=== PATIENT | female | born 1990 | race Caucasian/White ===

== ENCOUNTER 2017-05-05 20:03 | Emergency (ER) | payer BC ==
[2017-05-05 20:27] VITALS: BP 131/84
--- NOTE | 2017-05-05 20:32 | UC ---
Complaint Female HPI - HPI Summary HPI Summary: went off depo-provera 4 months ago---had a regular period in March and is bleeding and cramping now---is concerned she may be and miscarrying - History Of Current Complaint Chief Complaint: UCGU Stated Complaint: POSSIBLE MISCARRIAGE Time Seen by Provider: 05/05/17 20:29 Hx Obtained From: Patient Hx Last Menstrual Period: 04/22/17 ?: No Onset/Duration: Sudden Onset, Lasting Days - 1, Still Present Timing: Constant Severity Initially: Moderate Severity Currently: Moderate Pain Intensity: 4 Pain Scale Used: 0-10 Numeric Character: Cramping Aggravating Factor(s): Nothing Alleviating Factor(s): Nothing Associated Signs And Symptoms: Positive: Vaginal Bleeding/Discharge - Allergies/Home Medications Allergies/Adverse Reactions: Allergies Allergy/AdvReac Type Severity Reaction Status Date / Time No Known Allergies Allergy Verified 05/05/17 20:27 Home Medications: Home Medications Advil Menstrual* 1 tab PO PRN 05/05/17 [History] Vitamin TAB* 1 tab PO DAILY 05/05/17 [History Confirmed 05/05/17] PMH/Surg Hx/FS Hx/Imm Hx Previously Healthy: No - endometriosis - Surgical History Surgical History: Yes Surgery Procedure, Year, and Place: ear tubes 1999 - Family History Known Family History: Positive: None Negative: Hypertension, Diabetes - Social History Occupation: Employed Full-time Lives: With Family Alcohol Use: Occasionally Alcohol Amount: ONCE A MONTH Substance Use Type: None Smoking Status (MU): Never Smoked Tobacco - Immunization History Most Recent Influenza Vaccination: NEVER Most Recent Tetanus Shot: UTD Review of Systems Constitutional: Negative Skin: Negative Eyes: Negative ENT: Negative Respiratory: Negative Cardiovascular: Negative Gastrointestinal: Abdominal Pain - menstrual cramping Genitourinary: Negative Motor: Negative Neurovascular: Negative Musculoskeletal: Negative Neurological: Negative Psychological: Negative All Other Systems Reviewed And Are Negative: Yes Physical Exam Triage Information Reviewed: Yes Vital Signs: Initial Vital Signs Temp 98.8 F 05/05/17 20:23 Pulse 86 05/05/17 20:23 Resp 16 05/05/17 20:23 BP 131/84 05/05/17 20:23 Pulse Ox 100 05/05/17 20:23 Eye Exam: Normal Eyes: Positive: Conjunctiva Clear ENT Exam: Normal ENT: Positive: Normal ENT inspection, Hearing grossly normal. Negative: Nasal congestion, Nasal drainage, Trismus, Muffled/hoarse voice Dental Exam: Normal Neck exam: Normal Neck: Positive: Supple, Nontender Respiratory Exam: Normal Respiratory: Positive: Chest non-tender, Normal breath sounds, No respiratory distress Cardiovascular Exam: Normal Cardiovascular: Positive: RRR, No Murmur, Pulses Normal, Brisk Capillary Refill Abdominal Exam: Normal Abdomen Description: Positive: Nontender, No Organomegaly, Soft Bowel Sounds: Positive: Present Musculoskeletal Exam: Normal Musculoskeletal: Positive: Strength Intact, ROM Intact, No Edema Neurological Exam: Normal Neurological: Positive: Alert, Muscle Tone Normal Psychological Exam: Normal Psychological: Positive: Normal Response To Family, Age Appropriate Behavior Skin Exam: Normal Skin: Positive: rashes Diagnostics - Laboratory Diagnostic Studies Completed/Ordered: u preg (-), ua +blood Complaint Female Dx - Course Course Of Treatment: ibuprofen, warm pack on abdomwn follow with ob-assistant project manager prn - Differential Dx/Diagnosis Differential Diagnosis/HQI/PQRI: Endometriosis, , Renal Colic, Ureteral Stone, Urinary Tract Infection Provider Diagnoses: DUB Discharge - Discharge Plan Condition: Stable Disposition: HOME Patient Education Materials: Ibuprofen (By mouth), Dysfunctional Uterine Bleeding (ED), Warm Compress or Soak (ED) Referrals: Aliyah Rodgers [Primary Care Provider] - If Needed
== END 2017-05-05 21:00 | disposition home or self-care (01) ==
LOC: UCEAST 20:03
DX: N93.8 Other specified abnormal uterine and vaginal bleeding (principal)
CPT/HCPCS: 81003; 84702; 99211; G0463

== ENCOUNTER 2018-07-30 12:02 | Inpatient (IN) | payer BC ==
[2018-07-30] MEDS ORDERED: Misoprostol TAB* 100 MCG PO ONE (13:03)
--- NOTE | 2018-07-30 13:10 | HP ---
General Information - Reason for Visit Induction of labor for gestational hypertension - General Information Maternal Age: 28 Grav: 1 Para: 0 SAB: 0 IEA: 0 Estimated Due Date: 08/10/18 Determined By: Early Ultrasound Maternal Blood Type and Rh: A Positive - Results this Serology/RPR Result: Non-Reactive Rubella Result: Immune HBsAg Result: Negative HIV Result: Negative GBS Culture Result: Negative Past Medical History Pertinent Past Medical History: See Records - hx depression/anxiety Pertinent Past Surgical History: See Records - tubes in ears Pertinent Family History: See Records - CVD, HTN, Br CA, hypothyroidism - Antepartal Records Antepartal Records: Reviewed, Complicated by: - BMI 30, marginal previa (resolved 06/10/18), gestational hypertension without significant prontein urea Review of Systems Constitutional: Comfortable CV Complaint: No Respiratory: Shortness of Breath: No Gastrointestinal: No Nausea/Vomiting, Normal Bowel Movement Genitourinary: No Dysuria, No Bleeding, No Leaking Fluid Musculoskeletal: No Epigastric Pain, Abdominal Pain Neurological: No Headache, No Visual Changes Movement: Normal Exam Allergies/Adverse Reactions: Allergies No Known Allergies Allergy (Verified 07/30/18 12:21) Vital Signs 07/30/18 12:15 Temperature 98.5 F Pulse Rate 105 Respiratory 17 Rate Blood Pressure 155/98 (mmHg) O2 Sat by Pulse 100 Oximetry - Measurements Height: 5 ft 5 in Weight: 230 lb Weight in lbs: [id number] Body Mass Index (BMI): 38.2 Pre- Weight: 184 lb Weight Gained This : 46 lbs and 0 ozs - Exam Breast: Breast Exam Deferred CVA: No CVA Tenderness Extremities: No Edema Heart: Normal Rhythm/Heart Sounds HEENT: No Significant Findings Lungs: Clear Bilaterally Rectal: Rectal Exam Deferred Reflexes: DTR 2+ Thyroid: No Thyromegaly - Abdominal Exam Abdomen Exam: Fundal Height Consistent with Dates - Ultrasound/Biophysical Profile Ultrasound Status: Not Done Targeted Exam Findings Cervical Exam: 2cm Effacement: 70% Station: -1 Presenting Part: Vertex Membrane Status: Intact Bleeding/Discharge: None EFM Findings - External Monitor Findings Baseline Heart Rate: 135 External Monitor Findings: Accelerations Present, No Pattern of Variable or Late Decelerations, Variability Moderate, Baseline Stable Contractions: Irregular, Mild, < 45 Seconds Assessment/Plan - Assessment 28 y.o. , 38w 3d EGA, Gestational hypertension without significant protein urea - Obstetrical Risk Factors Obstetrical Risk Factors: Gestational Hypertension - Plan Plan: Induction, Cervical Ripening - Date/Time of Admission Date of Admission: 07/30/18 Time of Admission: 12:00
[2018-07-30] MEDS ORDERED: Dinoprostone* 10 MG VAG.SUPP VAGINAL ONE (18:26)
[2018-07-30] MEDS ORDERED: Nalbuphine* 10 MG/ML 1 ML VIAL IM PRN (18:31)
--- NOTE | 2018-07-30 18:31 | PN ---
Progress Note - Progress Note Date of Service: 07/30/18 SOAP: Subjective: [Pt reports she had some cramping but is feeling fine now and denies feeling any contractions. ] Objective: [T:98.6, R:16, P:85, BP:131/70 FHT: baseline 135bpm, moderate variability, + accels, -decels. ctx q 5-10 mild] Assessment: [28 y.o. 38w 3d EGA, gestational hypertension, IOL] Plan: [1) Cont cervical ripening cervadil 2) therapeutic rest 3) Reevaluate PRN
[2018-07-30] MEDS ORDERED: Promethazine INJ(RESTRICTED)* 25 MG/ML 1 ML VIAL IM PRN (18:32)
[2018-07-30] MEDS ORDERED: diPHENhydraMINE PO* 50 MG PO PRN (18:33)
[2018-07-31] MEDS ORDERED: Witch Hazel PAD* JAR TOPICAL PRN (14:36)
[2018-07-31] MEDS ORDERED: Glycerin ADULT SUPP PR PRN (14:36)
[2018-07-31] MEDS ORDERED: OXYTOCIN* 10 UNITS/ML 1 ML VIAL IM ONE (14:36)
[2018-07-31] MEDS ORDERED: Dibucaine 1% 28.35 GM TUBE PR PRN (14:36)
--- NOTE | 2018-07-31 14:42 | PROCNOTE ---
[facility] OB: Delivery Note - Delivery A Date of : 07/31/18 [place] Sex: Male Score 1 Minute: 9 Score 5 Minutes: 9 Gestational Age in Weeks and Days at Delivery: 38 Weeks and 4 Days Delivery Method: Spontaneous Vaginal Labor: Induced Did Patient attempt ?: N/A, No Previous Amniotic Fluid: Clear Estimated Blood Loss: 350 Anesthesia/Analgesia: Nitrous-Labor Delivered By: Michelle Thompson - Nursery Level of Nursery: Regular/Bedside - Perineum Perineal Injury: 1st Degree Perineal Repair: By Delivering Practioner - Events Delivery Events of Note: Pitocin Only After Delivery
[2018-07-31] MEDS: Ibuprofen TAB* 600 MG PO PRN ×2 (16:30→23:19)
[2018-07-31] MEDS: Acetaminophen TAB* 325 MG PO PRN (19:30)
[2018-07-31] MEDS: Docusate CAP* 100 MG PO SCH (19:30)
[2018-08-01] MEDS: Acetaminophen TAB* 325 MG PO PRN ×4 (05:46→18:27)
[2018-08-01 06:44] LABS: Hematocrit 33 % (35-47); Hemoglobin 11.3 g/dl (12.0-16.0); Mean Corpuscular HGB Conc 34 g/dl (31-36); Mean Corpuscular Hemoglobin 28 pg (27-31); Mean Corpuscular Volume 82 fL (80-97); Mean Platelet Volume 7.4 um3 (7.4-10.4); Platelet Count 322 10^3/ul (150-450); Red Blood Count 4.05 10^6/ul (4.00-5.40); Red Cell Distribution Width 14 % (10.5-15); White Blood Count 22.2 10^3/ul (3.5-10.8)
[2018-08-01 07:04] LABS: ABS Basophils 0 10^3/ul (0-0.2); ABS Neutrophils 17.1 10^3/ul (1.5-7.7); ABS Neutrophils 17.3 10^3/ul (1.5-7.7); Monocytes % 3 % (0-7)
[2018-08-01] MEDS: Docusate CAP* 100 MG PO SCH ×3 (07:55→21:04)
[2018-08-01] MEDS: Ibuprofen TAB* 600 MG PO PRN ×3 (07:55→20:02)
[2018-08-01] MEDS ORDERED: Ferrous Gluconate TAB* 324 MG TAB PO SCH (09:00)
[2018-08-01] MEDS ORDERED: BuPROPion XL* 150 MG TAB.XL PO SCH (15:00)
[2018-08-01] MEDS: Simethicone TAB* 80 MG TAB.CHEW PO SCH (19:37)
[2018-08-02] MEDS: Ibuprofen TAB* 600 MG PO PRN (01:31)
[2018-08-02] MEDS: Acetaminophen TAB* 325 MG PO PRN (01:31)
[2018-08-02 07:59] VITALS: BP 129/64
[2018-08-02] MEDS: Docusate CAP* 100 MG PO SCH (08:48)
== END 2018-08-02 13:41 | disposition home or self-care (01) | DRG 560 ==
LOC: MCHOBOUT 12:02 → MCHOB 19:16
PROVIDERS: ADMIT Midwife; ATTEND Midwife
PROC: 3E033VJ Introduction of Other Hormone into Peripheral Vein, Percutaneous Approach (ICD-10-PCS; principal; 2018-07-30)
PROC: 10E0XZZ Delivery of Products of Conception, External Approach (ICD-10-PCS; 2018-07-30)
PROC: 4A1HX4Z Monitoring of Products of Conception, Cardiac Electrical Activity, External Approach (ICD-10-PCS; 2018-07-30)
PROC: 3E0P7VZ Introduction of Hormone into Female Reproductive, Via Natural or Artificial Opening (ICD-10-PCS; 2018-07-30)
PROC: 0HQ9XZZ Repair Perineum Skin, External Approach (ICD-10-PCS; 2018-07-30)
DX: O13.4 Gestational [pregnancy-induced] hypertension without significant proteinuria, complicating childbirth (principal); Z37.0 Single live birth; Z82.49 Family history of ischemic heart disease and other diseases of the circulatory system; Z3A.38 38 weeks gestation of pregnancy; O70.0 First degree perineal laceration during delivery
CPT/HCPCS: 36415; 85025; A9270-GY; J2300; J2550; J2590; S0191

== ENCOUNTER 2018-09-07 07:21 | Emergency (ER) | payer BC ==
[2018-09-07 07:30] VITALS: BP 133/79
--- NOTE | 2018-09-07 07:47 | UC ---
Skin Complaint HPI - HPI Summary HPI Summary: 28-year-old woman comes in today with a chief complaint of bilateral breast pain and fevers. She delivered her baby on July 31, 2018. She has been breast-feeding. Pain is worse in the left breast the medial aspect. She had a fever 100.2 at home. She also has some tenderness in the right breast medial aspect. No shortness of breath does feel mildly ill. - History of Current Complaint Chief Complaint: UCSkin Time Seen by Provider: 09/07/18 07:31 Stated Complaint: PAIN L BREAST, CHILLS Hx Last Menstrual Period: has 1 month old baby Pain Intensity: 6 - Allergy/Home Medications Allergies/Adverse Reactions: Allergies Allergy/AdvReac Type Severity Reaction Status Date / Time No Known Allergies Allergy Verified 09/07/18 07:30 Home Medications: Home Medications BuPROPion XL* [Bupropion XL*] 450 mg PO DAILY 09/07/18 [History Confirmed ] SUMAtriptan TAB* [Imitrex TAB*] 25 mg PO SEE INSTRUCTIONS PRN 09/07/18 [History Confirmed 09/07/18] oxyCODONE TAB* [Roxycodone TAB 5 mg*] 5 mg PO Q4H PRN 09/07/18 [History Confirmed 09/07/18] Review of Systems All Other Systems Reviewed And Are Negative: Yes Constitutional: Positive: Fever, Chills Skin: Positive: Other - redness left breast Eyes: Positive: Negative ENT: Positive: Negative Respiratory: Positive: Negative Cardiovascular: Positive: Negative Gastrointestinal: Positive: Negative Motor: Positive: Negative Neurovascular: Positive: Negative Musculoskeletal: Positive: Negative Neurological: Positive: Negative Psychological: Positive: Negative Is Patient Immunocompromised?: No PMH/Surg Hx/FS Hx/Imm Hx Previously Healthy: Yes - Surgical History Surgical History: Yes Surgery Procedure, Year, and Place: ear tubes 1999 - Family History Known Family History: Positive: None Negative: Hypertension, Diabetes - Social History Alcohol Use: Occasionally Alcohol Amount: ONCE A MONTH Substance Use Type: None Smoking Status (MU): Never Smoked Tobacco Have You Smoked in the Last Year: No - Immunization History Most Recent Influenza Vaccination: NEVER Most Recent Tetanus Shot: UTD Most Recent Pneumonia Vaccination: never Physical Exam Triage Information Reviewed: Yes Appearance: No Pain Distress, Well-Nourished, Ill-Appearing - mild Vital Signs: Initial Vital Signs Temp 99.8 F 09/07/18 07:24 Pulse 118 09/07/18 07:24 Resp 16 09/07/18 07:24 BP 133/79 09/07/18 07:24 Pulse Ox 96 09/07/18 07:24 Vital Signs Reviewed: Yes Eye Exam: Normal Neck exam: Normal Neck: Positive: Supple Respiratory: Positive: No respiratory distress Cardiovascular: Positive: Tachycardia Musculoskeletal Exam: Normal Musculoskeletal: Positive: Strength Intact, ROM Intact Neurological Exam: Normal Neurological: Positive: Alert, Muscle Tone Normal Psychological Exam: Normal Psychological: Positive: Normal Response To Family, Age Appropriate Behavior Skin: Positive: Other - The left breast there is a 4 cm diameter area of erythema and swelling and tenderness on the medial aspect. On the right breast there is an area of the medial aspect it's mildly tender to palpation there is no erythema. Course/Dx - Course Course Of Treatment: We discussed mastitis. One of the nurses is also a bus info consultant and she spoke with the patient. The plan is to start dicloxacillin. Continue breast-feeding and follow up with OB. Reevaluation sooner if worse. - Diagnoses Provider Diagnoses: Mastitis B/L Discharge - Sign-Out/Discharge Documenting (check all that apply): Patient Departure All imaging exams completed and their final reports reviewed: No Studies - Discharge Plan Condition: Stable Disposition: HOME Prescriptions: Dicloxacillin CAP* [Dynapen CAP*] 500 mg PO QID #80 cap Patient Education Materials: Mastitis (ED) Referrals: Aliyah Rodgers [Primary Care Provider] - Additional Instructions: FOLLOW UP WITH YOUR OBGYN OR PRIMARY CARE DOCTOR. GET RECHECKED FOR ANY WORSENING OF YOUR CONDITION; FEVER, YOU FEEL ILL OR QUESTIONS OR CONCERNS. - Billing Disposition and Condition Condition: STABLE Disposition: Home
== END 2018-09-07 07:57 | disposition home or self-care (01) ==
LOC: UCEAST 07:21
DX: O91.23 Nonpurulent mastitis associated with lactation (principal)
CPT/HCPCS: 99212; G0463

== ENCOUNTER 2019-09-07 08:20 | Emergency (ER) | payer BC ==
--- NOTE | 2019-09-07 08:49 | ED ---
HPI Chest Pain - HPI Summary HPI Summary: The pt is a 29 yr old female presenting to [facility] c/o chest pain beginning 1 hours SHOVELER. He states that the pain is in her central chest are radiates to her right arm. She rates her current pain intensity a 4/10. No aggravating or alleviating factors noted. She notes that she has no history of CP but has had some arm pain in the past before. She also reports SOB w the chest pain (since resolved) and abd pain but denies fever, nausea, or vomiting. She has Fhx of HTN and cardiac disease. Denies hx exertional CP, DVT/PE, prior cardiac hx. Does not smoke. - History of Current Complaint Chief Complaint: EDChestPainROMI Time Seen by Provider: 09/07/19 08:30 Hx Obtained From: Patient Hx Last Menstrual Period: has 1 month old baby Onset/Duration: Started Hours Ago, Still Present Timing: Constant, Lasting Hours Initial Severity: Moderate Current Severity: Moderate Pain Intensity: 4 Pain Scale Used: 0-10 Numeric Chest Pain Location: Diffuse Chest Pain Radiates: Yes Chest Pain Radiates To:: Arm Aggravating Factor(s): Nothing Alleviating Factor(s): Nothing Associated Signs and Symptoms: Positive: Chest Pain, Shortness of Breath - since resolved, Abdominal Pain. Negative: Fever, Nausea, Vomiting - Allergy/Home Medications Allergies/Adverse Reactions: Allergies Allergy/AdvReac Type Severity Reaction Status Date / Time No Known Allergies Allergy Verified 09/07/19 08:26 PMH/Surg Hx/FS Hx/Imm Hx Endocrine/Hematology History: Denies: Hx Diabetes, Hx Thyroid Disease Cardiovascular History: Denies: Hx Hypertension Respiratory History: Denies: Hx Asthma, Hx Chronic Obstructive Pulmonary Disease (COPD) GI History: Denies: Hx Ulcer History: Denies: Hx Kidney Infection, Other Problems/Disorders Psychiatric History: Reports: Hx Depression - Pt takes Bupropion Denies: Other Psychiatric Issues/Disorders - Surgical History Surgery Procedure, Year, and Place: ear tubes 1999 Infectious Disease History: No Infectious Disease History: Denies: Hx Clostridium Difficile, Hx Hepatitis, Hx Human Immunodeficiency Virus (HIV), Hx of Known/Suspected MRSA, Hx Shingles, Hx Tuberculosis, Hx Known/ Suspected VRE, Hx Known/Suspected VRSA, History Other Infectious Disease, Traveled Outside the [place] in Last 30 Days - Family History Known Family History: Positive: None Negative: Hypertension, Diabetes - Social History Alcohol Use: Occasionally Alcohol Amount: ONCE A MONTH Substance Use Type: Reports: None Smoking Status (MU): Never Smoked Tobacco Have You Smoked in the Last Year: No Review of Systems Negative: Fever Positive: Chest Pain Positive: Shortness Of Breath Positive: Abdominal Pain. Negative: Vomiting, Nausea All Other Systems Reviewed And Are Negative: Yes Physical Exam - Summary Physical Exam Summary: Constitutional: Well-developed, Well-nourished, Alert. (-) Distressed Skin: Warm, Dry HENT: Normocephalic; Atraumatic Eyes: Conjunctiva normal Neck: Musculoskeletal ROM normal neck. (-) JVD, (-) Stridor, (-) Nuchal rigidity Cardio: Rhythm regular, rate normal, Heart sounds normal; Intact distal pulses; Radial pulses are 2+ and symmetric. (-) Murmur Pulmonary/Chest wall: Effort normal. (-) Respiratory distress, (-) Wheezes, (-) Rales Abd: Soft, (-) tenderness, (-) Distension, (-) Guarding, (-) Rebound Musculoskeletal: (-) Edema Lymph: (-) Cervical adenopathy Neuro: Alert, Oriented x3 Psych: Mood and affect Normal Triage Information Reviewed: Yes Vital Signs On Initial Exam: Initial Vitals Temp Pulse Resp BP Pulse Ox 97.9 F 76 16 136/66 98 09/07/19 08:25 09/07/19 08:25 09/07/19 08:25 09/07/19 08:25 09/07/19 08:25 Vital Signs Reviewed: Yes Procedures - Sedation Patient Received Moderate/Deep Sedation with Procedure: No Diagnostics - Vital Signs Vital Signs Temp Pulse Resp BP Pulse Ox 09/07/19 08:39 16 09/07/19 08:38 87 98 09/07/19 08:25 97.9 F 76 16 136/66 98 - Laboratory Result Diagrams: 09/07/19 08:49 09/07/19 08:49 Lab Statement: Any lab studies that have been ordered have been reviewed, and results considered in the medical decision making process. - Radiology CXR Radiology Interpretation Completed By: Radiologist Summary of Radiographic Findings: IMPRESSION: NO ACTIVE CARDIOPULMONARY DISEASE. ED Physician has reviewed this report. - EKG 0824 Cardiac Rate: NL EKG Rhythm: Sinus Rhythm - 78 bpm Summary of EKG Findings: An EKG at 0824 reveals normal sinus rhythm @ 78 bpm, nml axis, nml intervals. No STEMI. No acute changes. Re-Evaluation - Re-Evaluation First Eval Re-Evaluation Time: 12:05 Change: Improved - second trop neg, patient feels better. D/w return precautions Chest Pain Course/Dx - Course Course Of Treatment: 29 y/o F p/w CP. Chest Pain DDX: The patient is well appearing, with stable vitals. Given the patient's clinical presentation, highest on differential is atypical CP. Although less likely, differential also includes the following: --Pneumothorax: Equal breath sounds, story inconsistent since gradual onset of symptoms. CXR shows no evidence of pneumothorax. Unlikely. --Cardiac tamponade: The history and physical are not concerning for tamponade. No Pulsus Paradoxus, no tachypnea. Unlikely. -- Mediastinitis or esophageal rupture: The history is not consistent, as the patient has had no recent history of significant wretching, instrumentation, or mediastinal surgeries. Unlikely. --Aortic dissection: The patient does not describe the classical tearing chest pain radiating into the back, and the CXR does not show mediastinal widening or other signs of aortic dissection. Unlikely. --PE: Vitals wnl (not hypoxic, tachycardic or tachypneic). PERC neg. --ACS: The initial EKG shows no ischemic changes. The troponin is not elevated x2. - Diagnoses Provider Diagnoses: Chest pain Discharge ED - Sign-Out/Discharge Documenting (check all that apply): Patient Departure - discharge - Discharge Plan Condition: Stable Disposition: HOME Patient Education Materials: Chest Pain (ED) Referrals: Aliyah Rodgers [Primary Care Provider] - 3 Days Additional Instructions: You were seen in the emergency department for chest pain. Your EKG (heart tracing), labs and chest x-ray did not show any cause for pain. Important that you follow up with you primary care doctor in the next 1-2 days. Please return to the emergency department for continued chest pain, trouble breathing, passing out, or if you're concerned. - Billing Disposition and Condition Condition: STABLE Disposition: Home - Attestation Statements Document Initiated by Scribe: Yes Documenting Scribe: Alessandro Munoz Provider For Whom Scribe is Documenting (Include Credential): Marie Patel Scribe Attestation: I, Alessandro Munoz, scribed for Marie Patel on 09/07/19 at 1216. Scribe Documentation Reviewed: Yes Provider Attestation: The documentation as recorded by the scribe, Alessandro Munoz accurately reflects the service I personally performed and the decisions made by me, Marie Patel Status of Scribe Document: Viewed
[2019-09-07 08:57] LABS: ABS Eosinophils 0.1 10^3/ul (0-0.6); ABS Lymphocytes 2.2 10^3/ul (1.0-4.8); ABS Monocytes 0.5 10^3/ul (0-0.8); ABS Neutrophils 5.6 10^3/ul (1.5-7.7); Eosinophil % 1.3 %; Hematocrit 39 % (35-47); Hemoglobin 12.8 g/dL (12.0-16.0); Lymphocyte % 26.5 %; Mean Corpuscular HGB Conc 33 g/dL (31-36); Mean Corpuscular Hemoglobin 27 pg (27-31); Mean Corpuscular Volume 82 fL (80-97); Mean Platelet Volume 7.1 fL (7.4-10.4); Platelet Count 365 10^3/uL (150-450); Red Blood Count 4.71 10^6 /uL (3.70-4.87); Red Cell Distribution Width 14 % (10-15); White Blood Count 8.5 10^3/uL (3.5-10.8)
[2019-09-07 09:06] LABS: INR 1.14 (0.82-1.09)
[2019-09-07] MEDS ORDERED: Lidocaine 2% VISCOUS* 15 ML UDC PO ONE (09:11)
[2019-09-07] MEDS ORDERED: Al Hydrox/Mg Hydrox/Simet LIQ* 30 ML UDC PO ONE (09:11)
[2019-09-07 09:14] LABS: Albumin 4.3 g/dL (3.2-5.2); Albumin/Globulin Ratio 1.5 (1-3); BUN/Creatinine Ratio 11.9 (8-20); Calcium 8.9 mg/dL (8.6-10.3); EGFR African American 147.9 (>60); EGFR Non-African American 122.3 (>60); Globulin 2.8 g/dL (2-4); Potassium 3.8 mmol/L (3.5-5.0); Total Bilirubin 0.7 mg/dL (0.2-1.0); Total Protein 7.1 g/dL (6.4-8.9)
[2019-09-07 09:15] LABS: Troponin I 0.01 ng/mL (<0.04)
[2019-09-07] MEDS ORDERED: hydrOXYzine HCL TAB* 25 MG PO ONE (09:43)
[2019-09-07 12:19] VITALS: BP 117/72
== END 2019-09-07 12:26 | disposition home or self-care (01) ==
LOC: ED 08:20
DX: R07.9 Chest pain, unspecified (principal)
CPT/HCPCS: 36415; 71046; 80053; 84484; 84702; 85025; 85610; 93005; 99282; A9270-GY

== ENCOUNTER 2022-12-22 16:32 | Inpatient (IN) ==
[2022-12-22] MEDS ORDERED: Dinoprostone 10 MG VAG.SUPP VAGINAL ONE (17:49)
[2022-12-22] MEDS ORDERED: Promethazine INJ(RESTRICTED) 25 MG/ML 1 ml VIAL IV PRN (17:49)
[2022-12-22] MEDS ORDERED: Lactated Ringers 1000 ml BAG 1,000 ML IV ONE (17:49)
[2022-12-22] MEDS ORDERED: Nalbuphine 10 MG/ML 1 ML VIAL IV PRN (17:49)
[2022-12-22] MEDS ORDERED: Buffered Lidocaine 1% SYRIN 1 ml INTRADERM ONE (17:49)
[2022-12-22] MEDS ORDERED: Lactated Ringers 1000 ml BAG 1,000 ML IV SCH (18:00)
[2022-12-22 18:09] LABS: ABS Eosinophils 0.1 10^3/ul (0-0.6); ABS Lymphocytes 2.7 10^3/ul (1.0-4.8); ABS Monocytes 0.9 10^3/ul (0-0.8); ABS Neutrophils 13.1 10^3/ul (1.5-7.7); Eosinophil % 0.6 %; Hematocrit 36 % (35-47); Hemoglobin 11.4 g/dL (12.0-16.0); Mean Corpuscular HGB Conc 32 g/dL (31-36); Mean Corpuscular Hemoglobin 25 pg (27-31); Mean Corpuscular Volume 80 fL (80-97); Mean Platelet Volume 8.7 fL (7.4-10.4); Platelet Count 308 10^3/uL (150-450); Red Blood Count 4.52 10^6 /uL (3.70-4.87); Red Cell Distribution Width 16 % (10-15); White Blood Count 16.9 10^3/uL (3.5-10.8)
[2022-12-22 18:14] LABS: Urine Appearance Cloudy; Urine Bilirubin Negative (Negative); Urine Blood Negative (Negative); Urine Color Yellow; Urine Glucose Negative (Negative); Urine Ketones Negative (Negative); Urine Nitrite Negative (Negative); Urine Protein 2+(100 mg/dL) (Negative); Urine Specific Gravity 1.021 (1.002-1.030); Urine Urobilinogen Negative (Negative)
[2022-12-22 18:19] LABS: Urine Bacteria 2+ (Absent); Urine Red Blood Cell Trace(0-2/hpf) (Absent); Urine Squamous Epithelial Cell Present (Absent); Urine White Blood Cell 1+(6-10/hpf) (Absent)
[2022-12-22 18:34] LABS: Albumin 3.2 g/dL (3.2-5.2); Albumin/Globulin Ratio 1.1 (1-3); Calcium 8.8 mg/dL (8.6-10.3); Creatinine, Serum 0.4 mg/dL (0.51-0.95); Globulin 2.8 g/dL (2-4); Potassium 4.3 mmol/L (3.5-5.0); Total Bilirubin 0.3 mg/dL (0.2-1.0); eGFR CKD-EPI 136.5 (>60)
[2022-12-22 18:46] LABS: Urine Benzodiazepine Screen None Detected (None Detect); Urine Cannabinoids Screen None Detected (None Detect); Urine Opiates Screen Presumptive Positive (None Detect)
[2022-12-22] MEDS ORDERED: Calcium Carb (TUMS) 500 mg CHEW TAB PO PRN (19:54)
[2022-12-23] MEDS ORDERED: Oxytocin in LR 20,000 MILLI.UNIT/1,000 ML BAG IV ONE (02:16)
[2022-12-23] MEDS ORDERED: Glycerin ADULT 2.4 gm SUPP PR PRN (04:17)
[2022-12-23] MEDS ORDERED: Witch Hazel PAD JAR TOPICAL PRN (04:17)
[2022-12-23] MEDS ORDERED: Dibucaine 1% OINT 28.35 GM TUBE PR PRN (04:17)
[2022-12-23] MEDS ORDERED: Oxytocin in LR 20,000 MILLI.UNIT/1,000 ML BAG IV SCH (04:30)
[2022-12-23] MEDS ORDERED: Lactated Ringers 1000 ml BAG 1,000 ML IV SCH (05:00)
[2022-12-24 07:06] LABS: ABS Eosinophils 0.1 10^3/ul (0-0.6); ABS Lymphocytes 3.2 10^3/ul (1.0-4.8); ABS Monocytes 0.8 10^3/ul (0-0.8); ABS Neutrophils 9.9 10^3/ul (1.5-7.7); Hematocrit 33 % (35-47); Hemoglobin 10.8 g/dL (12.0-16.0); Lymphocyte % 22.8 %; Mean Corpuscular HGB Conc 32 g/dL (31-36); Mean Corpuscular Hemoglobin 26 pg (27-31); Mean Corpuscular Volume 79 fL (80-97); Mean Platelet Volume 7.9 fL (7.4-10.4); Platelet Count 275 10^3/uL (150-450); Red Cell Distribution Width 16 % (10-15); White Blood Count 14.2 10^3/uL (3.5-10.8)
[2022-12-25 08:20] VITALS: BP 148/77
[2022-12-26 21:14] LABS: Codeine Confirmation, Urine 103 ng/mL (Cutoff: 25); Dihydrocodeine Conf, Urine Negative ng/mL (Cutoff: 25); Naloxone Confirm, Urine Negative ng/mL (Cutoff: 25); Norhydrocodone Confirm, Urine Negative ng/mL (Cutoff: 25); Noroxycodone Confirm, Urine Negative ng/mL (Cutoff: 25); Noroxymorphone Confirm, Urine Negative ng/mL (Cutoff: 25); Oxycodone Confirm, Urine Negative ng/mL (Cutoff: 25); Oxymorphone Confirm, Urine Negative ng/mL (Cutoff: 25)
== END 2022-12-25 12:53 | disposition home or self-care (01) | DRG 560 ==
LOC: MCHOBOUT 16:32 → MCHOB 17:48
PROVIDERS: ADMIT Obstetrics & Gynecology; ATTEND Obstetrics & Gynecology

== ENCOUNTER 2024-07-15 18:27 | Observation (INO) ==
[2024-07-15 19:41] LABS: Urine Appearance Clear; Urine Bilirubin Negative (Negative); Urine Blood 1+ (Negative); Urine Color Light-Yellow; Urine Glucose Negative (Negative); Urine Ketones Negative (Negative); Urine Nitrite Negative (Negative); Urine Protein Negative (Negative); Urine Specific Gravity 1.018 (1.002-1.030); Urine Urobilinogen Negative (Negative)
[2024-07-15 19:46] LABS: Urine Bacteria 1+ /HPF (Absent); Urine Red Blood Cell 1+(3-5/hpf) /HPF (0-Trace); Urine Squamous Epithelial Cell Present /HPF (Absent); Urine White Blood Cell Trace(0-5/hpf) /HPF (0-Trace)
[2024-07-15] MEDS: NS 0.9% 1000 ml BAG 1,000 ML IV ONE (23:34)
[2024-07-15] MEDS: Morphine 4 MG/ML VIAL (1 ml) IV ONE (23:34)
[2024-07-15 23:45] LABS: ABS Basophils 0.1 10^3/uL (0.0-0.1); ABS Eosinophils 0.1 10^3/uL (0.0-0.5); ABS Lymphocytes 3.6 10^3/uL (1.0-4.8); ABS Monocytes 0.6 10^3/uL (0.0-0.9); ABS Neutrophils 7.4 10^3/uL (1.5-7.6); ABS Nucleated RBC 0.01 10^3/ul; Eosinophil % 1.2 %; Hemoglobin 11.5 g/dL (11.5-14.3); Lymphocyte % 30.5 %; Mean Corpuscular Hemoglobin 24.5 pg (27-33); Mean Corpuscular Hgb Conc 31.9 g/dL (31-36); Mean Corpuscular Volume 76.9 fL (80-97); Mean Platelet Volume 7.1 fL (7.5-11.2); Nucleated Red Blood Cells % 0.1 %/100WBC (0.0-0.8); Platelet Count 458 10^3/uL (150-450); Red Blood Count 4.69 10^6/uL (3.63-4.92); Red Cell Distribution Width 15.1 % (12-17); White Blood Count 11.8 10^3/uL (3.8-11.8)
[2024-07-16 00:32] LABS: Albumin 4.4 g/dL (3.2-5.2); Albumin/Globulin Ratio 1.5 (1-3); C Reactive Protein 24.81 mg/L (<8.01); Calcium 9.2 mg/dL (8.6-10.3); Creatinine, Serum 0.59 mg/dL (0.51-0.95); Globulin 2.9 g/dL (2-4); Total Bilirubin 0.6 mg/dL (0.2-1.0); Total Protein 7.3 g/dL (6.4-8.9); eGFR CKD-EPI 122.7 (>60)
[2024-07-16] MEDS ORDERED: Ondansetron 4 mg VIAL 2 MG/ML 2 ml VIAL IV PRN ×3 (03:22→17:25)
[2024-07-16] MEDS ORDERED: HYDROmorphone 1 MG/1 ML SYRINGE IV SLOW PU PRN (03:22)
[2024-07-16] MEDS: Piperacillin/Tazobac 3.375 BAG 3.375 GM/100 ML BAG IV ONE (04:15)
[2024-07-16] MEDS: Lactated Ringers 1000 ml BAG 1,000 ML IV SCH (05:23)
[2024-07-16] MEDS: HYDROmorphone 0.5 MG/0.5 ML SYRINGE IV SLOW PU PRN (05:23)
[2024-07-16] MEDS: Piperacillin/Tazobac 3.375 BAG 3.375 GM/100 ML BAG IV SCH (08:15)
[2024-07-16] MEDS ORDERED: fentaNYL 100 mcg/2 ml 50 MCG/ML VIAL ONE ×2 (14:39→16:56)
[2024-07-16] MEDS ORDERED: Midazolam 2 mg/2 ml VIAL 1 mg/ml 2 ml VIAL (2 mg) ONE (14:39)
[2024-07-16] MEDS ORDERED: Bupivacaine 0.25% EPI 200,000 30 ML SDV ONE (14:42)
[2024-07-16] MEDS ORDERED: Dexamethasone IV 4 MG/ML VIAL 1 ml VIAL ONE (15:39)
[2024-07-16] MEDS ORDERED: Succinylcholine 200 mg VIAL 20 mg/ml 10 ml VIAL (200 mg) ONE (15:39)
[2024-07-16] MEDS ORDERED: Ondansetron 4 mg VIAL 2 MG/ML 2 ml VIAL ONE (15:39)
[2024-07-16] MEDS ORDERED: Propofol 10 MG/ML 20 ML BTL ONE (15:39)
[2024-07-16] MEDS ORDERED: Rocuronium 50 mg VIAL 10 mg/ml 5 ml VIAL (50 mg) ONE (15:40)
[2024-07-16] MEDS ORDERED: HYDROmorphone 0.5 MG/0.5 ML SYRINGE ONE (15:56)
[2024-07-16] MEDS ORDERED: Buffered Lidocaine 1% SYRIN 1 ml INTRADERM ONE ×2 (16:44)
[2024-07-16] MEDS ORDERED: Naloxone 0.4 mg VIAL 0.4 mg/ml 1 ml VIAL IV PRN ×2 (16:44→17:25)
[2024-07-16] MEDS ORDERED: Metoclopramide 5 MG/ML VIAL (10 mg) IV PRN ×2 (16:44→17:25)
[2024-07-16] MEDS ORDERED: Acetaminophen IV 1 GM/100ML 1,000 MG/100 ML BAG IV ONE ×2 (16:44→16:57)
[2024-07-16] MEDS ORDERED: Scopolamine 1 mg/72hr PATCH TRANSDERM ONE ×2 (16:44)
[2024-07-16] MEDS: fentaNYL 100 mcg/2 ml 50 MCG/ML VIAL IV PRN (16:57)
[2024-07-16] MEDS ORDERED: NS 0.45% 1000 ml BAG 1,000 ML IV SCH ×2 (17:00→18:00)
[2024-07-16] MEDS ORDERED: Lactated Ringers 1000 ml BAG 1,000 ML IV SCH ×2 (17:00→18:00)
[2024-07-16 18:22] VITALS: BP 120/70
== END 2024-07-16 19:24 | disposition home or self-care (01) ==
LOC: ED 18:27 → EDHOLD 18:27 → AA 07-16 14:04 → UNDODISOB 07-16 17:20
PROVIDERS: ADMIT Surgery; ATTEND Surgery